=== PATIENT | male | born 2000 | race Hispanic/Latino ===

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

== ENCOUNTER 2019-10-02 15:58 | Emergency (ER) | payer BC ==
--- OUTSIDE RECORDS SUMMARY | 2019-10-02 16:00 | XMS REPORT ---
:2000 [facility] Address [address] [place] [address] Dr. Louis [address] [place] [id number] Care Team Providers Name Role Phone Unavailable Unavailable Unavailable Problems This patient has no known problems. Allergies, Adverse Reactions, Alerts This patient has no known allergies or adverse reactions. Medications This patient has no known medications.
[2019-10-02] MEDS ORDERED: DIPHENHYDRAMINE 50 MG/ML VIAL ONE (16:44)
[2019-10-02] MEDS ORDERED: METHYLPREDNISOLONE 125 MG INJ ONE (16:44)
[2019-10-02] MEDS ORDERED: FAMOTIDINE 20 MG TAB ONE (16:45)
--- NOTE | 2019-10-02 16:57 | EDPHYS ---
Physician Documentation [facility] Name: Moreno Fuentes Age: 19 yrs Sex: Male : 2000 Arrival Date: 10/02/2019 Time: 15:59 Bed 28 Private MD: Lusi El H ED Physician Padmini Mccollum HPI: 10/02 16:40 This 19 yrs old Male presents to ER via Ambulatory with complaints of Lips ma2 Swelling. 16:40 Onset: The symptoms/episode began/occurred gradually, 1 day(s) ago. Associated signs ma2 and symptoms: Pertinent positives: Pertinent negatives: dysphagia, inability to eat, nausea, pain, redness in area. Severity of symptoms: At their worst the symptoms were very mild, mild, in the emergency department the symptoms are unchanged. Historical: - Allergies: 16:14 NKA; rv - Home Meds: 16:14 Apriso Oral [Active]; Omeprazole Oral [Active]; rv - PMHx: 16:14 Crohn's; HIV; rv - PSHx: 16:14 None; rv - Immunization history:: Adult Immunizations up to date. - Social history:: Smoking status: Patient/guardian denies using tobacco, Patient/guardian denies using alcohol, street drugs, The patient lives with family. - Ebola Screening: : No symptoms or risks identified at this time. - Family history:: not pertinent. ROS: 16:40 Constitutional: Negative for fever, chills, and weight loss. ma2 16:40 All other systems are negative. Exam: 16:40 Constitutional: This is a well developed, well nourished patient who is awake, alert, ma2 and in no acute distress. Head/Face: Normocephalic, atraumatic. Eyes: Pupils equal round and reactive to light, extra-ocular motions intact. Lids and lashes normal. Conjunctiva and sclera are non-icteric and not injected. Cornea within normal limits. Periorbital areas with no swelling, redness, or edema. ENT: mild lower lip swelling, Nares patent. No nasal discharge, no septal abnormalities noted. Tympanic membranes are normal and external auditory canals are clear. Oropharynx with no redness, swelling, or masses, exudates, or evidence of obstruction, uvula midline. Mucous membranes moist. Neck: Trachea midline, no thyromegaly or masses palpated, and no cervical lymphadenopathy. Supple, full range of motion without nuchal rigidity, or vertebral point tenderness. No Meningismus. Chest/axilla: Normal chest wall appearance and motion. Nontender with no deformity. No lesions are appreciated. Cardiovascular: Regular rate and rhythm with a normal S1 and S2. No gallops, murmurs, or rubs. Normal PMI, no JVD. No pulse deficits. Respiratory: Lungs have equal breath sounds bilaterally, clear to auscultation and percussion. No rales, rhonchi or wheezes noted. No increased work of breathing, no retractions or nasal flaring. Abdomen/GI: Soft, non-tender, with normal bowel sounds. No distension or tympany. No guarding or rebound. No evidence of tenderness throughout. Vital Signs: 16:13 BP 129 / 83; Pulse 97; Resp 18; Temp 98.1; Pulse Ox 99% ; Weight 99.79 kg; Height 6 ft. rv 1 in. (185.42 cm); 16:13 Body Mass Index 29.03 (99.79 kg, 185.42 cm) rv MDM: 16:16 Patient medically screened. ma2 16:40 Differential diagnosis: gingivostomatitis. Data reviewed: vital signs, nurses notes. ma2 Counseling: I had a detailed discussion with the patient and/or guardian regarding: the historical points, exam findings, and any diagnostic results supporting the discharge/admit diagnosis, the presence of at least one elevated blood pressure reading (>120/80) during this emergency department visit, the need for outpatient follow up. Response to treatment: the patient's symptoms have mildly improved after treatment. Administered Medications: 16:48 Drug: Benadryl 50 mg Route: IM; Site: right gluteus; aj1 17:07 Follow up: Response: No adverse reaction aj1 16:49 Drug: MethylPREDNISolone Sodium Succinate 125 mg Route: IM; Site: left gluteus; aj1 17:07 Follow up: Response: No adverse reaction aj1 16:49 Drug: Pepcid 20 mg Route: PO; aj1 17:07 Follow up: Response: No adverse reaction aj1 Disposition: 10/02/19 16:43 Discharged to Home. Impression: Abrasion of lip - with mild swelling. - Condition is Stable. - Discharge Instructions: Edema, [id number]. - Prescriptions for Benadryl 25 mg Oral Capsule - take 1 capsule by ORAL route every 6 hours As needed; 30 tablet. Medrol (Agustin) 4 mg Oral Tablets, Dose Pack - take 1 tablet by ORAL route as directed - follow package instructions; 1 packet. - Medication Reconciliation Form, Thank You Letter, Antibiotic Education, Prescription Opioid Use form. - Follow up: Private Physician; When: Tomorrow; Reason: If symptoms return, Continuance of care. Signatures: Luana Mckee RN RN aj1 Padmini Mccollum MD MD ma2 Milan Decker RN RN rv Corrections: (The following items were deleted from the chart) 17:07 16:43 10/02/2019 16:43 Discharged to Home. Impression: Abrasion of lip - with mild aj1 swelling. Condition is Stable. Prescriptions for Benadryl 25 mg Oral Capsule - take 1 capsule by ORAL route every 6 hours As needed; 30 tablet, Medrol (Agustin) 4 mg Oral Tablets, Dose Pack - take 1 tablet by ORAL route as directed - follow package instructions; 1 packet. and Forms are Medication Reconciliation Form, Thank You Letter, Antibiotic Education, Prescription Opioid Use. Follow up: Private Physician; When: Tomorrow; Reason: If symptoms return, Continuance of care. ma2
--- NOTE | 2019-10-02 16:58 | ER ---
Nurse's Notes [facility] Name: Moreno Fuentes Age: 19 yrs Sex: Male : 2000 Arrival Date: 10/02/2019 Time: 15:59 Bed 28 Private MD: Luis El H Diagnosis: Abrasion of lip-with mild swelling Presentation: 10/02 16:12 Presenting complaint: Patient states: SORE IN THE LOWER LIP. Transition of care: rv patient was not received from another setting of care. Onset of symptoms was October 02, 2019 at 08:00. Risk Assessment: Do you want to hurt yourself or someone else? Patient reports no desire to harm self or others. Initial Sepsis Screen: Does the patient meet any 2 criteria? No. Patient's initial sepsis screen is negative. Does the patient have a suspected source of infection? No. Patient's initial sepsis screen is negative. Care prior to arrival: None. 16:12 Method Of Arrival: Ambulatory rv 16:12 Acuity: SHAE 4 rv Triage Assessment: 16:17 General: Appears in no apparent distress. Behavior is calm. Pain: Denies pain. EENT: rv Lesions noted. Cardiovascular: Patient's skin is warm and dry. Respiratory: Airway is patent. :. Historical: - Allergies: 16:14 NKA; rv - Home Meds: 16:14 Apriso Oral [Active]; Omeprazole Oral [Active]; rv - PMHx: 16:14 Crohn's; HIV; rv - PSHx: 16:14 None; rv - Immunization history:: Adult Immunizations up to date. - Social history:: Smoking status: Patient/guardian denies using tobacco, Patient/guardian denies using alcohol, street drugs, The patient lives with family. - Ebola Screening: : No symptoms or risks identified at this time. - Family history:: not pertinent. Screenin:41 Abuse screen: Denies threats or abuse. Denies injuries from another. Nutritional aj1 screening: No deficits noted. Tuberculosis screening: No symptoms or risk factors identified. Fall Risk None identified. Assessment: 16:41 General: Appears in no apparent distress. comfortable, Behavior is calm, cooperative, aj1 appropriate for age. Pain: Denies pain. Neuro: Level of Consciousness is awake, alert, obeys commands. Cardiovascular: Patient's skin is warm and dry. Respiratory: Airway is patent Respiratory effort is even, unlabored, Respiratory pattern is regular, symmetrical. GI: No signs and/or symptoms were reported involving the gastrointestinal system. : No signs and/or symptoms were reported regarding the genitourinary system. EENT: mild swelling to lower lip. Derm: No signs and/or symptoms reported regarding the dermatologic system. Skin is pink, warm \T\ dry. normal. Musculoskeletal: No signs and/or symptoms reported regarding the musculoskeletal system. Circulation, motion, and sensation intact. Vital Signs: 16:13 BP 129 / 83; Pulse 97; Resp 18; Temp 98.1; Pulse Ox 99% ; Weight 99.79 kg; Height 6 ft. rv 1 in. (185.42 cm); 16:13 Body Mass Index 29.03 (99.79 kg, 185.42 cm) rv ED Course: 15:59 Patient arrived in ED. am2 16:00 Luis El DO is Private Physician. am2 16:13 Triage completed. rv 16:16 Padmini Mccollum MD is Attending Physician. ma2 16:17 Arm band placed on Patient placed in the treatment room, on a stretcher, Patient rv notified of wait time. 16:40 Luana Mckee RN is Primary Nurse. aj1 16:41 Patient has correct armband on for positive identification. Bed in low position. Call aj1 light in reach. 16:41 No provider procedures requiring assistance completed. Patient did not have IV access aj1 during this emergency room visit. Administered Medications: 16:48 Drug: Benadryl 50 mg Route: IM; Site: right gluteus; aj1 17:07 Follow up: Response: No adverse reaction aj1 16:49 Drug: MethylPREDNISolone Sodium Succinate 125 mg Route: IM; Site: left gluteus; aj1 17:07 Follow up: Response: No adverse reaction aj1 16:49 Drug: Pepcid 20 mg Route: PO; aj1 17:07 Follow up: Response: No adverse reaction aj1 Outcome: 16:43 Discharge ordered by . ma2 17:06 Discharged to home ambulatory. aj1 17:06 Condition: good 17:06 Discharge instructions given to patient, Instructed on discharge instructions, follow up and referral plans. medication usage, Demonstrated understanding of instructions, follow-up care, medications, Prescriptions given X 2. 17:07 Patient left the ED. aj1 Signatures: Luana Mckee RN RN aj1 Flaca Mims Mohammad, MD MD ma2 Milan Decker RN RN rv
[2019-10-02 17:21] VITALS: BP 129/83; TEMP 98.1; O2SAT 99
== END 2019-10-02 17:07 | disposition home or self-care (01) ==
LOC: ER 15:58
DX: S00.511A Abrasion of lip, initial encounter (principal); Z21 Asymptomatic human immunodeficiency virus [HIV] infection status
CPT/HCPCS: 96372; 99283; J1200; J2930

== ENCOUNTER 2025-07-16 00:54 | Inpatient (IN) | payer BC, SELFPAY ==
[2025-07-16] MEDS ORDERED: FAMOTIDINE 20 MG/2 ML VIAL IV ONE (01:27)
[2025-07-16] MEDS ORDERED: ONDANSETRON 4 MG/2 ML VIAL ONE (01:27)
[2025-07-16] MEDS ORDERED: MORPHINE 4 MG/ML SYR ONE (01:27)
[2025-07-16] MEDS ORDERED: NA CHLORIDE 0.9% 1,000 ML ONE ×2 (01:27→06:32)
[2025-07-16 02:40] LABS: Absolute Lymphocytes (CBC) 4.3 K/uL (0.7-4.9); Hematocrit 46.2 % (39.6-49.0); Hemoglobin 15.3 g/dL (13.6-17.9); MCH 29.5 pg (27.0-35.0); MCHC 33.2 g/dL (32.0-36.0); MCV 88.9 fL (80-100); MPV 8.4 fL (7.6-11.3); Nucleated RBC Absolute Count 0.0 (0-0); Nucleated Red Blood Cells % 0.2 % (0-0); RBC Red Blood Cell Count 5.19 M/uL (4.33-5.43); White Blood Count 10.00 thou/uL (4.3-10.9)
[2025-07-16 03:08] LABS: ALT/SGPT 36.0 U/L (16-61); AST/SGOT 21.0 U/L (15-37); Albumin 3.9 g/dL (3.4-5.0); Albumin/Globulin Ratio 1.2 (1.1-1.8); Alkaline Phosphatase 101.0 U/L (45-117); Anion Gap 6.4 mEq/L (5.0-15.0); BUN Blood Urea Nitrogen 10.0 mg/dL (7-18); Globulin 3.2 g/dL (2.3-3.5); Glucose Level 90.0 mg/dL (74-106); Lipase 46.0 U/L (13-75); Potassium 3.4 mEq/L (3.5-5.1)
--- NOTE | 2025-07-16 05:54 | RAD REPORT ---
EXAM: CT Abdomen and Pelvis With Intravenous Contrast CLINICAL HISTORY: The patient is 25 years old and is Male; ABD PAIN TECHNIQUE: Axial computed tomography images of the abdomen and pelvis with intravenous contrast. Sagittal an d coronal reformatted images were created and reviewed. This CT exam was performed using one or more of the following dose reduction techniques: automated exposure control, adjustment of the mA a nd/or kV according to patient size, and/or use of iterative reconstruction technique. COMPARISON: 08/25/2016 FINDINGS: LUNG BASES: Trace dependent atelectasis in the lung bases. ABDOMEN: LIVER: Unremarkable. No mass. GALLBLADDER AND BILE DUCTS: Partially calcified stone in the neck of the gallbladder measures 2 c m. The gallbladder is moderately distended and demonstrates minimal pericholecystic fluid. No ductal dilation. PANCREAS: Unremarkable. No mass. No ductal dilation. SPLEEN: Unremarkable. No splenomegaly. ADRENALS: Unremarkable. No mass. KIDNEYS AND URETERS: Unremarkable. No solid mass. No hydronephrosis. STOMACH AND BOWEL: Assessment of bowel is somewhat limited by absence of oral contrast. Moderat e stool scattered in portions of the colon. No obstruction. No mucosal thickening. PELVIS: APPENDIX: Appendix is normal. BLADDER: Unremarkable. No mass. REPRODUCTIVE: Unremarkable as visualized. ABDOMEN and PELVIS: INTRAPERITONEAL SPACE: Unremarkable. No free air. No significant fluid collection. BONES/JOINTS: No acute fracture. No dislocation. SOFT TISSUES: Unremarkable. VASCULATURE: Unremarkable. No abdominal aortic aneurysm. LYMPH NODES: Unremarkable. No enlarged lymph nodes. IMPRESSION: Cholelithiasis with findings concerning for early changes of cholecystitis. Surgical consultation rec ommended. Electronically signed by: Wilfredo Sotelo MD 07/16/2025 05:51 AM T Due to temporary technical issues with the PACS/Quri reporting system, reports are being laya d by the in-house radiologist without review as a courtesy to ensure prompt reporting the interpreting radiologist is fully responsible for the content of the report. Transcribed Date/Time: 07/16/2025 5:54 AM
--- NOTE | 2025-07-16 06:26 | EDPHYS ---
Physician Documentation [facility] Name: Moreno Fuentes Age: 25 yrs Sex: Male : 2000 Arrival Date: 07/16/2025 Time: 00:54 Bed 19 Private MD: ED Physician Bam Florian HPI: 07/16 01:08 This 25 yrs old Male presents to ER via Unassigned with complaints of sb4 Abdominal Pain. 01:12 Patient reports upper abdominal pain for several months now that is intermittent. sb4 However, he states that it became much worse today, reports sharp stabbing pain. Does report a history of Crohn's but is not taking any medications. States he did eat poorly today which may be a cause of it. Had 1 episode of diarrhea, no nausea or vomiting. No fever or chills. Historical: - Allergies: 01:09 NKA; vc1 - Home Meds: 01:09 None [Active]; vc1 - PMHx: 01:09 Crohn's; HIV; vc1 - PSHx: 01:09 Tonsillectomy; vc1 - Immunization history:: Adult Immunizations unknown. - Infectious Disease History:: HIV. - Social history:: Smoking status: Reported history of juuling and/or vaping. ROS: 01:12 Constitutional: Negative for fever, chills, and weight loss, sb4 01:12 Abdomen/GI: Positive for abdominal pain, diarrhea, 01:12 All other systems are negative, Exam: 01:12 Head/Face: Normocephalic, atraumatic. Eyes: Extra-ocular motions intact. Periorbital sb4 areas with no swelling, redness, or edema. ENT: Mucous membranes moist. Cardiovascular: Regular rate and rhythm with a normal S1 and S2. Respiratory: No increased work of breathing, no retractions or nasal flaring. Abdomen/GI: Soft, non-tender, no distension. Skin: Warm, dry with normal turgor. Normal color with no rashes, no lesions, and no evidence of cellulitis. 01:12 Constitutional: The patient appears in no acute distress, alert, awake, Vital Signs: 01:10 BP 124 / 83; Pulse 65; Resp 18; Temp 98.2; Pulse Ox 100% ; cp4 02:11 BP 117 / 84; Pulse 50; Resp 18; Pulse Ox 99% ; cp4 03:31 BP 110 / 72; Pulse 52; Resp 18; Pulse Ox 100% ; cp4 04:32 BP 104 / 60; Pulse 52; Resp 18; Pulse Ox 100% ; cp4 05:51 BP 113 / 77; Pulse 63; Resp 18; Pulse Ox 100% ; cp4 06:44 BP 105 / 69; Pulse 54; Resp 18; Pulse Ox 100% ; cp4 09:33 BP 106 / 65; Pulse 67; Resp 18; Pulse Ox 100% on R/A; af3 MDM: 01:02 Medical Screening Exam initiated sb4 01:12 Differential diagnosis: cholecystitis, Cholelithiasis, gastritis, non-specific abd sb4 pain, pancreatitis, Peptic Ulcer Disease. 06:21 Data reviewed: vital signs, nurses notes, lab test result(s), radiologic studies, CT sp4 scan. ED course: CT - FINDINGS: LUNG BASES: Trace dependent atelectasis in the lung bases. ABDOMEN: LIVER: Unremarkable. No mass. GALLBLADDER AND BILE DUCTS: Partially calcified stone in the neck of the gallbladder measures 2 cm. The gallbladder is moderately distended and demonstrates minimal pericholecystic fluid. No ductal dilation. PANCREAS: Unremarkable. No mass. No ductal dilation. SPLEEN: Unremarkable. No splenomegaly. ADRENALS: Unremarkable. No mass. KIDNEYS AND URETERS: Unremarkable. No solid mass. No hydronephrosis. STOMACH AND BOWEL: Assessment of bowel is somewhat limited by absence of oral contrast. Moderate stool scattered in portions of the colon. No obstruction. No mucosal thickening. PELVIS: APPENDIX: Appendix is normal. BLADDER: Unremarkable. No mass. REPRODUCTIVE: Unremarkable as visualized. ABDOMEN and PELVIS: INTRAPERITONEAL SPACE: Unremarkable. No free air. No significant fluid collection. BONES/JOINTS: No acute fracture. No dislocation. SOFT TISSUES: Unremarkable. VASCULATURE: Unremarkable. No abdominal aortic aneurysm. LYMPH NODES: Unremarkable. No enlarged lymph nodes. IMPRESSION: Cholelithiasis with findings concerning for early changes of cholecystitis. Surgical consultation recommended. . 06:22 Consideration of Admission/Observation Escalation of care including sp4 admission/observation considered. 14:04 Counseling: I had a detailed discussion with the patient and/or guardian regarding the sb4 historical points, exam findings, and any diagnostic results supporting the discharge/admit diagnosis, lab results, radiology results, the need for further work-up and treatment in the hospital. 07/16 01:07 Order name: CBC with Diff; Complete Time: 06:09 sb4 07/16 01:07 Order name: CMP; Complete Time: 06:09 sb4 07/16 01:07 Order name: Lipase; Complete Time: 06:09 sb4 07/16 08:34 Order name: CBC with Automated Diff EDMS 07/16 08:34 Order name: CBC with Automated Diff EDMS 07/16 08:34 Order name: Comprehensive Metabolic Panel EDMS 07/16 08:34 Order name: Comprehensive Metabolic Panel EDMS 07/16 08:34 Order name: Magnesium EDMS 07/16 08:34 Order name: Magnesium EDMS 07/16 01:07 Order name: CT Abd/Pelvis - IV Contrast Only; Complete Time: 14:01 sb4 07/16 08:34 Order name: CONS Physician Consult EDMS 07/16 01:07 Order name: IV Saline Lock; Complete Time: 01:23 sb4 07/16 01:07 Order name: Labs collected and sent; Complete Time: 01:23 sb4 Administered Medications: 01:33 Drug: Ondansetron IVP 4 mg IVP once; over 2 minutes Route: IVP; Site: right antecubital;cp4 06:29 Follow up: Response: Nausea is decreased cp4 01:33 Drug: morphine IVP or IV 4 mg IVP once over 4 mins Route: IVP; Infused Over: 4 mins; cp4 Site: right antecubital; 06:30 Follow up: Response: No adverse reaction; Pain is decreased cp4 01:33 Drug: NS 0.9% IV 1000 ml IV at 1 bolus Per protocol; to be given as a bolus over 60 cp4 minutes Route: IV; Rate: 1 bolus; Site: right antecubital; 06:29 Follow up: IV Status: Completed infusion cp4 01:33 Drug: Famotidine IVP 20 mg IVP once; dilute with 10 mL 0.9% NaCl; give over 2 minutes cp4 Route: IVP; Site: right antecubital; 06:29 Follow up: Response: No adverse reaction cp4 06:26 CANCELLED (Physician Discretion): hydrocodone-acetaminophen5 mg-325 mg 2 tabs PO once sp4 06:26 CANCELLED (Physician Discretion): mvoksyqveojy60 mg PO once sp4 06:26 CANCELLED (Physician Discretion): [id number] mg PO once sp4 06:26 CANCELLED (Physician Discretion): [id number] mg PO once sp4 06:26 CANCELLED (Physician Discretion): [id number] mg PO once sp4 06:27 CANCELLED (Physician Discretion): ondansetron4 mg PO once sp4 06:41 Drug: metroNIDAZOLE IVPB 500 mg 100 ml IVPB at 200 ml/hr once over 30 mins Volume: 100 cp4 ml; Route: IVPB; Rate: 200 ml/hr; Infused Over: 30 mins; Site: right antecubital; 09:04 Follow up: Response: No adverse reaction; IV Status: Completed infusion; IV Intake: af3 500ml 06:42 Drug: NS 0.9% IV 1000 ml IV at 250 ml/hr once; to be given at 250 ml / hour Route: IV; cp4 Rate: 250 ml/hr; Site: right antecubital; 07:30 Follow up: Response: No adverse reaction; IV Status: Completed infusion; IV Intake: af3 1000ml 06:42 Drug: Rocephin - Rocephin (cefTRIAXone) IVPB 1 grams IVPB once over 30 mins; (mix in 50 cp4 mL NS) Route: IVPB; Infused Over: 30 mins; Site: right antecubital; 06:42 Follow up: IV Status: Infusion continued cp4 Disposition: 06:25 Co-signature as Attending Physician, Goran Vega MD I agree with the assessment and sp4 plan of care. I reviewed the patient's care provided by Advanced Practice Provider \T\ agree w/ the diagnosis \T\ care plan. I personally saw the pt \T\ performed a substantive portion of the visit, incldng all aspects of the (History/Exam/Medical Decision Making). 14:04 Chart complete. sb4 Disposition Summary: 07/16/25 06:25 Hospitalization Ordered Notes: Hospitalization Status: Observation sp4 Provider: Goran Vega Location: Telemetry/MedSurg (observation) sp4 Condition: Fair sp4 Problem: new sp4 Symptoms: have improved sp4 Bed/Room Type: Standard sp4 Room Assignment: 420(07/16/25 09:13) ss Diagnosis - Acute cholecystitis sp4 - Acute calculous cholecystitis sp4 Forms: - Medication Reconciliation Form sp4 - SBAR form sp4 - Leadership Thank You Letter sp4 Signatures: Dispatcher [employer] EDMS Carol Turner, RN RN ss eYny Liu RN RN vc1 Bella Barroso PA-C PA-C sb4 Bam Florian MD MD sp4 Lindy Yang cp4 Kaur Kaur RN af3 Corrections: (The following items were deleted from the chart) 01:08 01:08 CBC+H.LAB.BRZ ordered. EDMS EDMS 01:08 01:08 COMPREHENSIVE METABOLIC PANEL+C.LAB.BRZ ordered. EDMS EDMS 01:08 01:08 LIPASE+C.LAB.BRZ ordered. EDMS EDMS 01:11 01:09 PSHx: None; vc1 vc1 06:26 06:19 HYDROcodone-acetaminophen PO 5 mg-325 mg 2 tabs PO once ordered. sp4 sp4 06:26 06:19 Promethazine PO 25 mg PO once ordered. sp4 sp4 06:26 06:20 Cephalexin PO 500 mg PO once ordered. sp4 sp4 06:26 06:20 Ibuprofen PO 800 mg PO once ordered. sp4 sp4 06:26 06:21 metroNIDAZOLE PO 500 mg PO once ordered. sp4 sp4 06:27 06:21 Ondansetron PO 4 mg PO once ordered. sp4 sp4 09:13 06:25 sp4 ss
--- NOTE | 2025-07-16 06:26 | ER ---
Nurse's Notes [facility] Name: Moreno Fuentes Age: 25 yrs Sex: Male : 2000 Arrival Date: 07/16/2025 Time: 00:54 Bed 19 Private MD: Diagnosis: Acute cholecystitis;Acute calculous cholecystitis Presentation: 07/16 01:08 Chief complaint: Patient states: upper abdominal pain for months worse tonight. vc1 Coronavirus screen: Client denies travel out of the [place] in the last 14 days. At this time, the client does not indicate any symptoms associated with coronavirus-19. Ebola Screen: Patient negative for fever greater than or equal to 101.5 degrees Fahrenheit, and additional compatible Ebola Virus Disease symptoms Patient denies exposure to infectious person. Patient denies travel to an Ebola-affected area in the 21 days before illness onset. No symptoms or risks identified at this time. Initial Sepsis Screen: Does the patient meet any 2 criteria? No. Patient's initial sepsis screen is negative. Does the patient have a suspected source of infection? No. Patient's initial sepsis screen is negative. Risk Assessment: Do you want to hurt yourself or someone else? Patient reports no desire to harm self or others. Onset of symptoms is unknown. 01:08 Method Of Arrival: Ambulatory vc1 01:08 Acuity: SHAE 3 vc1 Historical: - Allergies: 01:09 NKA; vc1 - Home Meds: 01:09 None [Active]; vc1 - PMHx: 01:09 Crohn's; HIV; vc1 - PSHx: 01:09 Tonsillectomy; vc1 - Immunization history:: Adult Immunizations unknown. - Infectious Disease History:: HIV. - Social history:: Smoking status: Reported history of juuling and/or vaping. Screenin:11 Abuse screen: Denies threats or abuse. Nutritional screening: No deficits noted. vc1 Tuberculosis screening: No symptoms or risk factors identified. 01:11 [facility] ED Fall Risk Assessment (Adult) History of falling in the last 3 months, vc1 including since admission No falls in past 3 months (0 pts) Confusion or Disorientation No (0 pts) Intoxicated or Sedated No (0 pts) Impaired Gait No (0 pts) Mobility Assist Device Used No (0 pt) Altered Elimination No (0 pt) Score/Fall Risk Level 0 - 2 = Low Risk Oriented to surroundings, Maintained a safe environment, Educated pt \T\ family on fall prevention, incl call for assistance when getting out of bed, Assessed \T\ reinforced patient's understanding of fall precautions, Hourly rounding (assess needs \T\ fall precautionary measures) done. Assessment: 01:21 General: Appears in no apparent distress. uncomfortable, Behavior is calm, cooperative, cp4 appropriate for age. Pain: Complains of pain in abdomen Pain does not radiate. Pain currently is 8 out of 10 on a pain scale. Neuro: Level of Consciousness is awake, alert, obeys commands, Oriented to person, place, time, situation. Cardiovascular: Patient's skin is warm and dry. Respiratory: Airway is patent Respiratory effort is even, unlabored. GI: Abdomen is round non-distended, Bowel sounds present X 4 quads. Abd is soft and non tender X 4 quads. Reports lower abdominal pain, diarrhea. : No signs and/or symptoms were reported regarding the genitourinary system. EENT: No signs and/or symptoms were reported regarding the EENT system. Derm: No signs and/or symptoms reported regarding the dermatologic system. Musculoskeletal: No signs and/or symptoms reported regarding the musculoskeletal system. 02:30 Reassessment: Patient appears in no apparent distress at this time. Patient and/or cp4 family updated on plan of care and expected duration. Pain level reassessed. Patient is alert, oriented x 3, equal unlabored respirations, skin warm/dry/pink. 03:30 Reassessment: Patient appears in no apparent distress at this time. Patient and/or cp4 family updated on plan of care and expected duration. Pain level reassessed. Patient is alert, oriented x 3, equal unlabored respirations, skin warm/dry/pink. 04:30 Reassessment: Patient appears in no apparent distress at this time. Patient and/or cp4 family updated on plan of care and expected duration. Pain level reassessed. Patient is alert, oriented x 3, equal unlabored respirations, skin warm/dry/pink. 05:30 Reassessment: Patient appears in no apparent distress at this time. Patient and/or cp4 family updated on plan of care and expected duration. Pain level reassessed. Patient is alert, oriented x 3, equal unlabored respirations, skin warm/dry/pink. 06:43 Reassessment: Patient appears in no apparent distress at this time. Patient and/or cp4 family updated on plan of care and expected duration. Pain level reassessed. Patient is alert, oriented x 3, equal unlabored respirations, skin warm/dry/pink. 07:30 Reassessment: Patient appears in no apparent distress at this time. Patient and/or af3 family updated on plan of care and expected duration. Pain level reassessed. Patient is alert, oriented x 3, equal unlabored respirations, skin warm/dry/pink. 08:30 Reassessment: Patient appears in no apparent distress at this time. Patient and/or af3 family updated on plan of care and expected duration. Pain level reassessed. Patient is alert, oriented x 3, equal unlabored respirations, skin warm/dry/pink. 09:30 Reassessment: Patient appears in no apparent distress at this time. No changes from af3 previously documented assessment. Patient and/or family updated on plan of care and expected duration. Pain level reassessed. Patient is alert, oriented x 3, equal unlabored respirations, skin warm/dry/pink. Vital Signs: 01:10 BP 124 / 83; Pulse 65; Resp 18; Temp 98.2; Pulse Ox 100% ; cp4 02:11 BP 117 / 84; Pulse 50; Resp 18; Pulse Ox 99% ; cp4 03:31 BP 110 / 72; Pulse 52; Resp 18; Pulse Ox 100% ; cp4 04:32 BP 104 / 60; Pulse 52; Resp 18; Pulse Ox 100% ; cp4 05:51 BP 113 / 77; Pulse 63; Resp 18; Pulse Ox 100% ; cp4 06:44 BP 105 / 69; Pulse 54; Resp 18; Pulse Ox 100% ; cp4 09:33 BP 106 / 65; Pulse 67; Resp 18; Pulse Ox 100% on R/A; af3 ED Course: 00:57 Patient arrived in ED. gm2 00:59 Bella Barroso PA-C is PHCP. sb4 00:59 Bam Florian MD is Attending Physician. sb4 01:09 Triage completed. vc1 01:11 Arm band placed on right wrist. vc1 01:11 Patient has correct armband on for positive identification. Bed in low position. Call vc1 light in reach. Side rails up X2. Provided Education on: plan of care. 01:21 Lindy Yang is Primary Nurse. cp4 01:21 No provider procedures requiring assistance completed. Inserted saline lock: 20 gauge cp4 in right antecubital area, using aseptic technique. Blood collected. Flushed with 10 mL NS. 01:24 Lipase Sent. oe 01:24 CMP Sent. oe 01:24 CBC with Diff Sent. oe 03:30 CT Abd/Pelvis - IV Contrast Only In Process Unspecified. EDMS 06:25 Goran Vega MD is Hospitalizing Provider. sp4 10:17 Patient admitted, IV remains in place. cm10 Administered Medications: 01:33 Drug: Ondansetron IVP 4 mg IVP once; over 2 minutes Route: IVP; Site: right antecubital;cp4 06:29 Follow up: Response: Nausea is decreased cp4 01:33 Drug: morphine IVP or IV 4 mg IVP once over 4 mins Route: IVP; Infused Over: 4 mins; cp4 Site: right antecubital; 06:30 Follow up: Response: No adverse reaction; Pain is decreased cp4 01:33 Drug: NS 0.9% IV 1000 ml IV at 1 bolus Per protocol; to be given as a bolus over 60 cp4 minutes Route: IV; Rate: 1 bolus; Site: right antecubital; 06:29 Follow up: IV Status: Completed infusion cp4 01:33 Drug: Famotidine IVP 20 mg IVP once; dilute with 10 mL 0.9% NaCl; give over 2 minutes cp4 Route: IVP; Site: right antecubital; 06:29 Follow up: Response: No adverse reaction cp4 06:26 CANCELLED (Physician Discretion): hydrocodone-acetaminophen5 mg-325 mg 2 tabs PO once sp4 06:26 CANCELLED (Physician Discretion): [id number] mg PO once sp4 06:26 CANCELLED (Physician Discretion): mg PO once sp4 06:26 CANCELLED (Physician Discretion): [id number] mg PO once sp4 06:26 CANCELLED (Physician Discretion): [id number] mg PO once sp4 06:27 CANCELLED (Physician Discretion): ondansetron4 mg PO once sp4 06:41 Drug: metroNIDAZOLE IVPB 500 mg 100 ml IVPB at 200 ml/hr once over 30 mins Volume: 100 cp4 ml; Route: IVPB; Rate: 200 ml/hr; Infused Over: 30 mins; Site: right antecubital; 09:04 Follow up: Response: No adverse reaction; IV Status: Completed infusion; IV Intake: af3 500ml 06:42 Drug: NS 0.9% IV 1000 ml IV at 250 ml/hr once; to be given at 250 ml / hour Route: IV; cp4 Rate: 250 ml/hr; Site: right antecubital; 07:30 Follow up: Response: No adverse reaction; IV Status: Completed infusion; IV Intake: af3 1000ml 06:42 Drug: Rocephin - Rocephin (cefTRIAXone) IVPB 1 grams IVPB once over 30 mins; (mix in 50 cp4 mL NS) Route: IVPB; Infused Over: 30 mins; Site: right antecubital; 06:42 Follow up: IV Status: Infusion continued cp4 Medication: 01:11 VIS not applicable for this client. vc1 Intake: 07:30 IV: 1000ml; Total: 1000ml. af3 09:04 IV: 500ml; Total: 1500ml. af3 Outcome: 06:25 Decision to Hospitalize by Provider. sp4 10:17 Admitted to Tele accompanied by nurse, via wheelchair, room 420, cm10 10:17 Condition: stable 10:17 Instructed on the need for admit, 10:18 Patient left the ED. cm10 Signatures: Dispatcher [employer] EDIA Anselmo Ojeda Vanessa RN RN vc1 Bella Barroso, PAZinaC PA-C Bam Garcia MD MD sp4 Kelle Doherty RN RN cm10 Lindy Yang cp4 Ericka Doe gm2 Kaur Kaur RN RN af3 Corrections: (The following items were deleted from the chart) 01:11 01:09 PSHx: None; vc1 vc1 02:12 01:10 BP 124 / 83; Pulse 85bpm; Resp 18bpm; Pulse Ox 100%; Temp 98.2F; Pain 8/10, cp4 Adult; cp4
[2025-07-16] MEDS ORDERED: CEFTRIAXONE 1000 MG/VIAL ONE (06:32)
[2025-07-16] MEDS ORDERED: METRONIDAZOLE 500mg IVPB 500 MG/100 ML BAG IV ONE (06:32)
[2025-07-16] MEDS ORDERED: ONDANSETRON 4 MG/2 ML VIAL IV PRN (08:31)
[2025-07-16] MEDS ORDERED: MORPHINE 4 MG/ML SYR IV PRN (08:33)
--- NOTE | 2025-07-16 08:38 | P.HP ---
Certification for Inpatient Patient admitted to: Observation With expected LOS: <2 Midnights Practitioner: I am a practitioner with admitting privileges, knowledge of patient current condition, hospital course, and medical plan of care. Services: Services provided to patient in accordance with Admission requirements found in Title 42 Section 412.3 of the Code of Federal Regulations Patient History Date of Service: 07/16/25 Reason for admission: acute lupis History of Present Illness: 25yo M, PMH: Crohn's, HIV. Presented to ED due to severe RUQ pain. Reports 1 month of intermittent pain, but got severe and persistent last night. Associated with diarrhea and nausea. Denies fever at home, but felt some chills overnight. In the ED, CT noted 2cm stone in gallbladder neck and inflammation concerning for acute calculous cholecystitis. Labwork rather unremarkable, and vitals ok. Continues to have pain, although has had some improvement. Dr. Doherty was contacted for consult Allergies No Known Allergies Allergy (Unverified 07/16/25 08:39) Home Medications: Abacavir/Dolutegravir/Lamivudi [Triumeq 600-50-300 mg Tablet] 1 tab PO DAILY 07/16/25 - Past Medical/Surgical History -: Crohn's - not on meds -: HIV -: tonsillectomy - Family History Family History: Reviewed- Non-Contributory - Social History Smoking Status: Current some day smoker (vapes) Alcohol use: Yes Place of Residence: Home Review of Systems 10-point ROS is otherwise unremarkable Physical Examination - Physical Exam General: Alert, Oriented x3, Mild distress HEENT: Sclerae nonicteric Respiratory: Clear to auscultation bilaterally, Normal air movement Cardiovascular: No edema, Regular rate/rhythm Gastrointestinal: Soft and benign, Tenderness (mild-moderate RUQ) Musculoskeletal: No erythema, No tenderness Integumentary: No rashes, No significant lesion - Studies Laboratory Data (last 24 hrs) 07/16/25 07/16/25 01:13 01:13 WBC 10.00 Hgb 15.3 Hct 46.2 Plt Count 178 Sodium 138 Potassium 3.4 L BUN 10 Creatinine 1.06 Glucose 90 Total Bilirubin 0.3 AST 21 ALT 36 Alkaline Phosphatase 101 Lipase 46 Assessment and Plan - Advance Directives Does patient have a Living Will: No Does patient have a Durable POA for Healthcare: No Physician Review Additional Text: Problem List Acute cholecystitis h/o Crohn's h/o HIV zosyn IVF npo for now Dr. Doherty consulted - will see later today if surgery, likely tomorrow confirm home meds monitor for sepsis confirm home meds VTE: SCDs Code: full Dispo: home in ~24-48hrs Time Spent Managing Pts Care (In Minutes): 75
[2025-07-16 10:49] VITALS: BMI 26.9
[2025-07-16] MEDS: FLU (Fluarix) 25-26 (6MOS UP)/PF 45 MCG/0.5 ML Syringe IM ONE (11:15)
[2025-07-16] MEDS: D5 0.45 NS 1,000 ML IV SCH (11:39)
[2025-07-16] MEDS: PIPER TAZO 3.375 GM in NA CHLORIDE 0.9% 100 ML IV SCH (11:39)
[2025-07-16] MEDS: PNEUMOCOCCAL VACCINE 0.5 ML IMVAC ONE (11:40)
--- NOTE | 2025-07-16 16:44 | CON ---
Date of Consultation: 07/16/2025 Diagnosis: Acute cholecystitis, symptomatic cholelithiasis. History Of Present Illness: Mr. Fuentes is a 25-year-old patient who came to us with abdominal pain, came about 1 o'clock this morning, diagnosed with symptomatic cholelithiasis, acute cholecystitis. He was eating this afternoon some chicken with cheese, and then the pain developed, he has been havin g this month on and off for the last month. He thought it was just food issues, and so he did not pa y much attention to it. Allergies: NONE. Past Medical History: Included Crohn disease and HIV and tonsillectomy. Family History: Noncontributory. Social History: He vapes, and he was advised the importance of stop doing that. Drinks alcohol occa sionally. Medications: None. Physical Examination: Vital Signs: Temperature is 98.2 with pulse 64, respirations 18, blood pressure 132/85. General: The patient is awake and alert. Pain is better. HEENT: Pupils are equal and reactive. Anicteric. Neck: Supple. Chest: Clear. Heart: S1, S2. Abdomen: Epigastric right upper quadrant pain. Genitalia: Deferred. Rectal: Deferred. Extremities: Good capillary refill. Laboratory Data: Blood work shows WBC count of 10, hemoglobin of 15.3, potassium is 3.4, creatinine is 1.06. CAT scan of the abdomen and pelvis interpreted by Dr. Cannon as cholelithiasis with findings concerning for early cholecystitis. There is a stone in the neck of the gallbladder measuring about 2 cm. There is pericholecystic fluid present and the gallbladder is distended. Assessment: This is a 25-year-old patient with acute cholecystitis, symptomatic cholelithiasis, some other medical issues that the medical doctors are working on. From our standpoint, we offered him l aparoscopic possible open cholecystectomy as one of the options with benefits, alternatives, and risk s including, but not limited to, infection, bleeding, damage to adjacent structures, anesthesia compl ication, choledocholithiasis, bile leak, pancreatitis, PA, and even . He also understands this may not relieve any symptoms, he might need more than one surgical intervention. We are going to giv e him antibiotics in the meantime. GI addressed and then who will decide in the next few hours if he is going to go for surgery or if he gets better, he may even think to do this electively. SHERIE/DINA Voice ID: [id number] Report ID: [id number]
[2025-07-17 06:05] LABS: Absolute Lymphocytes (CBC) 2.2 K/uL (0.7-4.9); Hematocrit 40.7 % (39.6-49.0); Hemoglobin 13.5 g/dL (13.6-17.9); MCH 29.3 pg (27.0-35.0); MCHC 33.1 g/dL (32.0-36.0); MCV 88.5 fL (80-100); MPV 8.2 fL (7.6-11.3); Nucleated RBC Absolute Count 0.0 (0-0); Nucleated Red Blood Cells % 0.1 % (0-0); RBC Red Blood Cell Count 4.60 M/uL (4.33-5.43); White Blood Count 4.00 thou/uL (4.3-10.9)
[2025-07-17 06:28] LABS: ALT/SGPT 34.0 U/L (16-61); AST/SGOT 20.0 U/L (15-37); Albumin 3.3 g/dL (3.4-5.0); Albumin/Globulin Ratio 1.2 (1.1-1.8); Alkaline Phosphatase 67.0 U/L (45-117); Anion Gap 5.6 mEq/L (5.0-15.0); BUN Blood Urea Nitrogen 5.0 mg/dL (7-18); Globulin 2.7 g/dL (2.3-3.5); Glucose Level 102.0 mg/dL (74-106); Magnesium 1.8 mg/dL (1.6-2.4); Potassium 3.6 mEq/L (3.5-5.1)
[2025-07-17] MEDS: Ringers Lactate 1,000 ML IV ONE (12:26)
--- NOTE | 2025-07-17 12:34 | P.PN ---
Date of Service: 07/17/25 Subjective: feels ~same as yesterday no new issues NPO for surgery Physical Exam: GEN: Alert, oriented, NAD CV: Regular rate and rhythm, no edema Pulm:Nonlabored respirations on room air, clear bilaterally ABD: soft, mild-moderate RUQ, nondistended Neuro: Normal speech, normal affect Problem List: Acute cholecystitis h/o Crohn's h/o HIV Dr. Doherty consulted. Planning for surgery today. NPO for lap lupis IV zosyn (07/16-) confirm home meds, restart as appropriate Labs unremarkable. Monitor for sepsis VTE: SCD Code: Full Dispo: Home later today vs tomorrow Pending timing of surgery, recovery Time Spent Managing Pts Care (In Minutes): 55
[2025-07-17] MEDS ORDERED: ONDANSETRON 4 MG/2 ML VIAL ONE (12:49)
[2025-07-17] MEDS ORDERED: LIDOCAINE 2% MPF 5 ML VIAL ONE (12:49)
[2025-07-17] MEDS ORDERED: NEOSTIGMINE 1 MG/ML -10 ML VIAL ONE (12:49)
[2025-07-17] MEDS ORDERED: ROCURONIUM 50 MG/5 ML VIAL IV ONE (12:49)
[2025-07-17] MEDS ORDERED: FENTANYL CITR 100 MCG/2 ML ONE (12:49)
[2025-07-17] MEDS ORDERED: GLYCOPYRROLATE 0.2 MG/ML SYR ONE (12:49)
[2025-07-17] MEDS ORDERED: MIDAZOLAM HCL 2 MG/2 ML INJ ONE (12:50)
[2025-07-17] MEDS ORDERED: EPHEDRINE SULF 50 MG/ML VIAL ONE (13:38)
--- NOTE | 2025-07-17 13:58 | P.BOP ---
Preoperative diagnosis: symptomatic cholelithiasis, acute cholecystitis Postoperative diagnosis: same Primary procedure: Laparoscopic cholecystectomy Estimated blood loss: <10cc Specimen: gb Findings: as above Anesthesia: General Complications: None Transferred to: Recovery Room Condition: Good
[2025-07-17] MEDS: HYDROMORPHONE HCL 1 MG/ML INJ ONE (14:28)
[2025-07-17] MEDS: HYDROMORPHONE HCL 0.5 MG/0.5 ML INJ ONE (14:37)
[2025-07-17] MEDS: ONDANSETRON 4 MG/2 ML VIAL ONE (14:39)
[2025-07-17] MEDS: PROMETHAZINE INJ 25 MG/ML AMP ONE (14:40)
[2025-07-17] MEDS: FENTANYL CITR 100 MCG/2 ML ONE (14:54)
[2025-07-17] MEDS: HYDROCODONE/APAP 5/325 MG TAB PO PRN (20:10)
[2025-07-17 20:57] VITALS: O2SAT 97
--- NOTE | 2025-07-17 23:04 | OP ---
Date of Procedure: 07/17/2025 Surgeon: Nilay Doherty MD Preoperative Diagnoses: Symptomatic cholelithiasis, acute cholecystitis. Postoperative Diagnoses: Symptomatic cholelithiasis, acute cholecystitis. Procedure: Laparoscopic cholecystectomy. Estimated Blood Loss: Less than 10 cc. Specimen: Gallbladder. Findings: Acute cholecystitis, gallbladder wall edema. Anesthesia: General plus local. Complications: None. Indications: This is a case of a male, who comes to us with epigastric right upper quadrant pain, di agnosed with acute cholecystitis, symptomatic cholelithiasis. The benefits, alternatives, and risks of laparoscopic possible open cholecystectomy fully explained, which include, but not limited to infe ction, bleeding, damage to adjacent structures, anesthesia complication, choledocholithiasis, bile le ak, pancreatitis, MD, and even . He also understands this may not relieve symptoms. He might n eed more than one surgical intervention. He understood, signed a consent. Description Of Procedure: The patient was brought to the operating room, placed in supine position. Anesthesia was done without complication. Abdominal area was prepped and draped in sterile fashion. Marcaine 0.5% was injected for local anesthetic followed by sharp incision of the skin in the periu mbilical region. Incision was carried down to fascia, which was opened under direct vision. Periton eum was encountered, opened under direct vision. Vicryl #1 placed inside the fascia. Rachele trocar was carefully introduced. Pneumoperitoneum was obtained. I placed 3 more trocars, 5 mm each one of them, 1 epigastric area, 2 in the right upper quadrant using the same technique which consisted of lo migue anesthetic, sharp incision over the skin, introduction of the trocars under direct vision. This allowed me to put a grasper in the fundus of the gallbladder, another grasper in the infundibulum, re tracting the gallbladder in the inferolateral fashion exposing the triangle of Calot, obtaining criti migue view. Cystic duct and cystic artery were clearly isolated and freed circumferentially, and a con nection between those and the gallbladder were clearly identified. I proceeded to ligate those by us ing at least 3 clips proximal, 1 clip distal, ligation in middle. Same was done with the cystic rubin ry. No bile leak. No bleeding. The gallbladder was removed from liver using Bovie cauterizer. Bov ie cauterizer removed from abdominal cavity using EndoCatch through the umbilical incision. The area was inspected once again. No bile leak. No bleeding. At that moment, I proceeded to remove the tr ocars under direct vision, deflated pneumoperitoneum, closed the fascia with #1 Vicryl, irrigated sub cutaneous tissue, closed that with 3-0 chromic and then skin with Monocryl. Sponge count and instrum ent counts correct. The patient tolerated the procedure well. The patient was sent to recovery in s table condition. SHERIE/DINA Voice ID: [id number] Report ID: [id number]
[2025-07-18 06:10] LABS: Absolute Lymphocytes (CBC) 2.4 K/uL (0.7-4.9); Hematocrit 40.3 % (39.6-49.0); Hemoglobin 13.5 g/dL (13.6-17.9); MCH 29.5 pg (27.0-35.0); MCHC 33.5 g/dL (32.0-36.0); MCV 88.1 fL (80-100); MPV 7.8 fL (7.6-11.3); Nucleated RBC Absolute Count 0.0 (0-0); Nucleated Red Blood Cells % 0.1 % (0-0); RBC Red Blood Cell Count 4.57 M/uL (4.33-5.43); White Blood Count 6.50 thou/uL (4.3-10.9)
[2025-07-18 06:26] LABS: Anion Gap 7.5 mEq/L (5.0-15.0); BUN Blood Urea Nitrogen 3.0 mg/dL (7-18); Glucose Level 96.0 mg/dL (74-106); Potassium 3.5 mEq/L (3.5-5.1)
--- NOTE | 2025-07-18 09:51 | P.DS ---
Admission Date: 07/16/25 Discharge Date: 07/18/25 Disposition: ROUTINE DISCHARGE Discharge Condition: GOOD Reason for Admission: acute lupis Consultations: General surgery - Dr. Doherty Brief History of Present Illness: 25yo M, PMH: Crohn's, HIV. Presented to ED due to severe RUQ pain. Reports 1 month of intermittent pain, but got severe and persistent last night. Associated with diarrhea and nausea. Denies fever at home, but felt some chills overnight. In the ED, CT noted 2cm stone in gallbladder neck and inflammation concerning for acute calculous cholecystitis. Labwork rather unremarkable, and vitals ok. Continues to have pain, although has had some improvement. Dr. Doherty was contacted for consult Hospital Course: Problem List: Acute cholecystitis s/p lap lupis (07/17) h/o Crohn's h/o HIV Physician discharge instructions: Patient presented with worsening RUQ pain associated with nausea and diarrhea secondary to acute cholecystitis. CT abdomen/pelvis was consistent with cholelithiasis. Labwork on admission was unremarkable. Patient was evaluated by Dr. Doherty, general surgeon and underwent lap lupis on 07/17. His diet was slowly advanced post-operatively as his pain and nausea improved. Patient was feeling better, abdominal pain improved, nausea/diarrhea resolved, and was deemed stable for discharge. Recommend bland soft diet for next 3-5 days. Can slowly ease back into regular diet over the next week. Follow up with Dr. Doherty in his office in 1 week. No heavy lifting over 10 lbs for 4-6 weeks unless otherwise instructed by Dr. Doherty Medications: Augmentin x 7 days Hydrocodone/acetaminophen - as needed for pain every 6-8 hrs Follow up: PCP 3-[address] Doherty in his office in 1 week. Please call to schedule / confirm appointments Physical Exam: GEN: Alert, oriented, NAD CV: Regular rate and rhythm, no edema Pulm:Nonlabored respirations on room air, clear bilaterally ABD: soft, minimal soreness, dressing in place c/d/i Neuro: Normal speech, normal affect Vital Signs/Physical Exam: Temp Pulse Resp BP Pulse Ox 97.9 F 61 17 119/68 97 07/18/25 08:00 07/18/25 08:00 07/18/25 08:00 07/18/25 08:00 07/18/25 08:00 Laboratory Data at Discharge: WBC 6.50 thou/uL (4.3-10.9) 07/18/25 05:53 Hgb 13.5 g/dL (13.6-17.9) L 07/18/25 05:53 Hct 40.3 % (39.6-49.0) 07/18/25 05:53 Plt Count 158 thou/uL (152-406) 07/18/25 05:53 Sodium 140 mEq/L (136-145) 07/18/25 05:53 Potassium 3.5 mEq/L (3.5-5.1) 07/18/25 05:53 BUN 3 mg/dL (7-18) L 07/18/25 05:53 Creatinine 1.03 mg/dL (0.70-1.30) 07/18/25 05:53 Glucose 96 mg/dL (74-106) 07/18/25 05:53 Magnesium 1.8 mg/dL (1.6-2.4) 07/17/25 05:21 Total Bilirubin 1.0 mg/dL (0.2-1.0) 07/17/25 05:21 AST 20 U/L (15-37) 07/17/25 05:21 ALT 34 U/L (16-61) 07/17/25 05:21 Alkaline Phosphatase 67 U/L (45-117) 07/17/25 05:21 Lipase 46 U/L (13-75) 07/16/25 01:13 Home Medications: Abacavir/Dolutegravir/Lamivudi [Triumeq 600-50-300 mg Tablet] 1 tab PO DAILY 07/16/25 Amox/Clavulanate [Augmentin 875-125 Tab] 1 tab PO BID 7 Days #14 tab 07/18/25 Hydrocodone 5/APAP 325 [[place] 5/325*] 1 tab PO Q8H PRN #15 tab 07/18/25 New Medications: Amox/Clavulanate [Augmentin 875-125 Tab] 1 tab PO BID 7 Days #14 tab Hydrocodone 5/APAP 325 [[place] 5/325*] 1 tab PO Q8H PRN #15 tab PRN Reason: Pain Scale 5-7 (Moderate) Physician Discharge Instructions: Physician discharge instructions: Patient presented with worsening RUQ pain associated with nausea and diarrhea secondary to acute cholecystitis. CT abdomen/pelvis was consistent with cholelithiasis. Labwork on admission was unremarkable. Patient was evaluated by Dr. Doherty, general surgeon and underwent lap lupis on 07/17. His diet was slowly advanced post-operatively as his pain and nausea improved. Patient was feeling better, abdominal pain improved, nausea/diarrhea resolved, and was deemed stable for discharge. Recommend bland soft diet for next 3-5 days. Can slowly ease back into regular diet over the next week. Follow up with Dr. Doherty in his office in 1 week. No heavy lifting over 10 lbs for 4-6 weeks unless otherwise instructed by Dr. Doherty Medications: Augmentin x 7 days Hydrocodone/acetaminophen - as needed for pain every 6-8 hrs Follow up: PCP 3-[address] Doherty in his office in 1 week. Please call to schedule / confirm appointments Diet: AHA Activity: No lifting more than 10 lbs Followup: Nilay Doherty MD [ACTIVE - CAN ADMIT] - 1 Week NONE,NONE [Primary Care Provider] - Time spent managing pt's care (in minutes): 45
[2025-07-18 12:15] VITALS: BP 118/67; TEMP 98.4
--- NOTE | 2025-07-18 12:23 | P.PN ---
Subjective Date of Service: 07/18/25 Chief Complaint: acute lupis Subjective: Tolerating diet, Ambulating, Improving Review of Systems General: Unremarkable Respiratory: Unremarkable Gastrointestinal: Unremarkable Neurological: Unremarkable Physical Examination - Vital Signs Temperature: 98.4 F Blood Pressure: 118/67 Pulse: 52 Respirations: 18 Pulse Ox (%): 97 - Physical Exam General: Alert, In no apparent distress, Oriented x3, Cooperative HEENT: Normocephalic, PERRLA Neck: Supple Cardiovascular: Normal pulses Gastrointestinal: Soft and benign Musculoskeletal: No erythema, No tenderness, No warmth Integumentary: No rashes, No breakdown - Studies Laboratory Data (last 24 hrs) 07/18/25 07/18/25 05:53 05:53 WBC 6.50 Hgb 13.5 L Hct 40.3 Plt Count 158 Sodium 140 Potassium 3.5 BUN 3 L Creatinine 1.03 Glucose 96 Assessment And Plan - Plan Ok to d/h frpm surgical standpoint with PO pain meds and po abx No heavy lifting f/u office one week
== END 2025-07-18 13:55 | disposition home or self-care (01) | DRG 418 ==
LOC: ER 00:54 → ERHOLD 08:29 → 4TH 10:04 → OBSVTOIN 07-18 06:48
PROVIDERS: ADMIT Hospitalist; ATTEND Hospitalist
PROC: 0FT44ZZ Resection of Gallbladder, Percutaneous Endoscopic Approach (ICD-10-PCS; principal; 2025-07-17 14:15)
DX: K80.00 Calculus of gallbladder with acute cholecystitis without obstruction (principal); K50.90 Crohn's disease, unspecified, without complications; Z21 Asymptomatic human immunodeficiency virus [HIV] infection status
CPT/HCPCS: 36415; 74177; 80048; 80053; 83690; 83735; 85025; 88304; 94010; 94760; 96361; 96365; 96366; 96375; 99285; G0378; J0696; J1171; J2003; J2250; J2405; J2543; J2550; J2704; J2710; J3010; J7030; J7120; J7799; Q9967